=== PATIENT | male | born 1940 | race Caucasian/White ===

== ENCOUNTER 2020-07-13 11:58 | Outpatient (CLI) | payer MEDICARE, SELFPAY ==
--- NOTE | ~2020-07-13 | CT_ITS ---
EXAMINATION: CTA abd aorta runoff DATE: 07/13/2020 12:56 INDICATION: Claudication. TECHNIQUE: Computed tomographic angiography (CTA) of the abdominal, pelvis, and both lower extremitie s was performed with 150 mL Omnipaque-350 intravenous contrast. Automated exposure control and iterat ceci reconstruction technique were employed. The dose-length product was 1728.71 mGy-cm. Maximum inten sity projection 3D-reconstructions of the arteries were created by the technologist on a separate wor kstation. COMPARISON: None. FINDINGS: ABDOMINAL AORTA AND ITS BRANCHES: There is mild aortic atherosclerosis. No aneurysm. There is mild stenosis of celiac axis and superior mesenteric artery. There is moderate stenosis of the renal arteries. There is no significant stenosi s of inferior mesenteric artery. PELVIC VASCULATURE: There is no significant stenosis of the common iliac arteries, external iliac arteries, or internal i liac arteries. RIGHT LOWER EXTREMITY VASCULATURE: There is mild stenosis of right common femoral artery. There is no significant stenosis of right prof unda femoris, superficial femoral artery, popliteal artery, tibioperoneal trunk, peroneal artery, or anterior or posterior tibial arteries. LEFT LOWER EXTREMITY VASCULATURE: There is mild stenosis of left common femoral artery. There is no significant stenosis of profunda fe tosha of superficial femoral artery. There are foci of moderate and severe stenosis of the above-knee popliteal artery. There is a high origin of anterior tibial artery. There is no significant stenosis of the tibioperoneal trunk, peroneal artery, or anterior or posterior tibial arteries. ADDITIONAL FINDINGS: The visualized portions of the lung bases demonstrate mild atelectasis. No pleural effusion. The hear t size is normal. No pericardial effusion. There is a small sliding hiatal hernia. There are cysts in the liver measuring up to 15 mm. Calcifications in the spleen are consistent with old granulomatous disease. The gallbladder, pancreas, adrenal glands, and kidneys are normal. The prostate is severely enlarged. There is a left inguinal hernia containing nonobstructed sigmoid colon. There is diverticul osis of the colon without evidence of diverticulitis. The appendix is normal. There are no pathologic ally enlarged lymph nodes. There is no free intraperitoneal fluid. There is moderate lumbar spondylos is. IMPRESSION: 1. Foci of moderate and severe stenosis of the above-knee left popliteal artery. 2. Bilateral three-vessel runoff. 3. Moderate stenosis of the bilateral renal arteries. 4. Left inguinal hernia containing nonobstructed sigmoid colon. Reviewed, dictated and finalized at location A. IMPRESSION: 1. Foci of moderate and severe stenosis of the above-knee left popliteal arter y. 2. Bilateral three-vessel runoff. 3. Moderate stenosis of the bilateral renal arteries. 4. Left inguinal hernia containing nonobstructed sigmoid colon.
[2020-07-13 12:45] LABS: Estimated Glomerular Filt Rate > 60
== END 2020-07-13 11:59 | disposition home or self-care (01) ==
PROVIDERS: PCP Internal Medicine; Visit Provider Internal Medicine Cardiovascular Disease
DX: I25.10 Atherosclerotic heart disease of native coronary artery without angina pectoris (principal); I73.9 Peripheral vascular disease, unspecified; K40.90 Unilateral inguinal hernia, without obstruction or gangrene, not specified as recurrent
CPT/HCPCS: 75635; Q9967

== ENCOUNTER 2021-01-12 13:39 | Outpatient (CLI) | payer MEDICARE, SELFPAY ==
--- NOTE | ~2021-01-12 | US_ITS ---
EXAMINATION: US art doppler w press LE BI DATE: 01/12/2021 15:24 CDT INDICATION: Peripheral arterial disease. Claudication. TECHNIQUE: Segmental pressures and plethysmographic and Doppler waveforms of the brachial and lower e xtremity arteries were obtained. COMPARISON: CTA dated 07/13/2020. FINDINGS: Right and left brachial artery pressures of 133 mm Hg and 146 mm Hg, respectively, are concordant (no rmal difference <= 30 mmHg). The right high-thigh pressure index is 1.04 (normal > 1.2). The right ankle-brachial index (STEVEN) is 0 .82 (normal >= 0.9-1.0). The right great toe-brachial index (TBI) is 0.6 (normal >= 0.60). The right lower extremity segmental pressure gradients are increased below the right popliteal artery (normal g radients <= 20-30 mmHg between adjacent levels on the same leg or the same levels on the two legs). A rterial Doppler waveforms are biphasic. The left high-thigh pressure index is 0.93. The left STEVEN is 0.5 to. The left TBI is 0.75. The left lo wer extremity segmental pressure gradients are increased below the left femoral and popliteal arterie s.. Arterial Doppler waveforms are biphasic. IMPRESSION: 1. Bilateral peripheral arterial disease, mild on the right and moderate on the left. Reviewed, dictated and finalized at location A.
== END 2021-01-12 13:40 | disposition home or self-care (01) ==
PROVIDERS: PCP Internal Medicine; Visit Provider Internal Medicine Cardiovascular Disease
DX: I73.9 Peripheral vascular disease, unspecified (principal)
CPT/HCPCS: 93923

== ENCOUNTER 2022-01-04 13:34 | Outpatient (CLI) | payer MEDICARE, SELFPAY ==
--- NOTE | ~2022-01-04 | US_ITS ---
EXAMINATION: US art doppler w press LE BI DATE: 01/04/2022 14:57 INDICATION: Peripheral arterial disease. TECHNIQUE: Segmental pressures and plethysmographic and Doppler waveforms of the brachial and lower e xtremity arteries were obtained. COMPARISON: CTA 07/13/2020, arterial Doppler 01/12/2021 FINDINGS: Right and left brachial artery pressures of 140 mm Hg and 156 mm Hg, respectively, are concordant (no rmal difference <= 30 mmHg). The right ankle-brachial index (STEVEN) is 0.77 (normal >= 0.9-1.0). The right great toe-brachial index (TBI) is 0.99 (normal >= 0.65). The right lower extremity segmental pressure gradients are increased between lower thigh and below-knee measurements (normal gradients <= 20-30 mmHg between adjacent leve ls on the same leg or the same levels on the two legs). Arterial Doppler waveforms are biphasic from common femoral artery to the ankle. The left STEVEN is 0.72. The left TBI is 0.56. The left lower extremity segmental pressure gradients are increased between the lower thigh and the below knee measurement. Arterial Doppler waveforms are bip hasic at the ankle. IMPRESSION: 1. Mildly decreased right STEVEN and moderately decreased left STEVEN with interval worsening on the right and improvement on the left from 01/12/21, consistent with arterial occlusive disease. Reviewed, dictated and finalized at location A. IMPRESSION: 1. Mildly decreased right STEVEN and moderately decreased left STEVEN with interval w orsening on the right and improvement on the left from 01/12/21, consistent with arterial occlusive disease.
== END 2022-01-04 13:35 | disposition home or self-care (01) ==
PROVIDERS: PCP Internal Medicine; Visit Provider Internal Medicine Cardiovascular Disease
DX: I73.9 Peripheral vascular disease, unspecified (principal)
CPT/HCPCS: 93923